=== PATIENT | male | born 1990 | race Caucasian/White ===

== ENCOUNTER 2020-04-01 00:11 | Emergency (ER) | payer MEDICAID ==
[~2020-04-01] VITALS: Ht 170.2 cm; Wt 90.7 kg
[2020-04-01 00:52] VITALS: BP 153/95
== END 2020-04-01 01:12 | disposition short-term general hospital (02) ==
LOC: ER 00:14
DX: S31.119A Laceration without foreign body of abdominal wall, unspecified quadrant without penetration into peritoneal cavity, initial encounter (principal); F17.210 Nicotine dependence, cigarettes, uncomplicated; X99.1XXA Assault by knife, initial encounter; Y93.89 Activity, other specified; Y92.89 Other specified places as the place of occurrence of the external cause; Y99.8 Other external cause status
CPT/HCPCS: 93005

== ENCOUNTER 2021-06-19 02:43 | Emergency (ER) | payer SELFPAY ==
[~2021-06-19] VITALS: Ht 182.9 cm; Wt 88.5 kg
[2021-06-19 02:44] VITALS: BP 154/111
[2021-06-19] MEDS ORDERED: AMOX500T86 PO (05:50)
== END 2021-06-19 05:59 | disposition home or self-care (01) ==
LOC: ER 02:43
DX: L02.212 Cutaneous abscess of back [any part, except buttock and flank] (principal)